=== PATIENT | female | born 1940 | race Caucasian/White ===

== ENCOUNTER 2016-09-21 17:08 | Emergency (ER) | payer MEDICARE ==
[~2016-09-21] VITALS: Ht 170.2 cm; Wt 84.5 kg
[~2016-09-21 17:08] MED LIST: HCTZ1TAB PO; KLO5T PO; LEVO100T6 PO; LISI-567 PO
[2016-09-21 17:19] VITALS: BP 167/83; PULSE 71; RESP 16; O2SAT 97
--- NOTE | 2016-09-21 18:25 | ED.REPORT ---
HPI-Head Prob / Injury Date of Service Sep 21, 2016 ED Provider: Brandan Whitaker MD Pt is a 66 year old female with a history of hypertension who presents to the ED after a ground level fall at 16:00 today. She c/o associated nausea, knee pain, and head pain. She denies LOC, difficulty thinking, back pain, speech changes, and neck pain. Pt reports that she accidentally tripped over a table, causing her to fall onto the ground. Per pt, her last tetanus shot was more than 10 years ago. Nursing Notes Stated Complaint: HEAD INJURY/NAUSEA Chief Complaint: Multiple Trauma/Fall Nursing Notes Reviewed: Yes ([employer]akto[employer], meds not reconciled) Allergies: Coded Allergies: labetalol (Verified Allergy, Severe, Throat tight, 09/21/16) nifedipine (Verified Allergy, Intermediate, Dizzy, 09/21/16) Proton Pump Inhibitors (Verified Allergy, Mild, Worsened GI pain, 09/21/16) ranitidine (Verified Allergy, Mild, GI PAIN, 09/21/16) verapamil (Verified Allergy, Mild, Fatigue, 09/21/16) Sulfa (Sulfonamide Antibiotics) (Verified Allergy, Unknown, 09/21/16) Uncoded Allergies: CLONDINE (Allergy, Mild, Dry mouth, 09/21/16) Scheduled Levothyroxine (Levothyroxine) 100 Mcg Tablet 100 MCG PO DAILY Lisinopril (Lisinopril) 20 Mg Tablet 20 MG PO DAILY Spironolactone/HCTZ 25-25 mg (Aldactazide 25-25 mg) 1 Tab Tablet 1 TABLET PO DAILY Scheduled PRN Clonazepam (Clonazepam) 0.5 Mg Tablet 0.5 MG PO BID PRN PRN For Anxiety General Time Seen by Provider: 06:30 Chief Complaint Other (Ground level fall) Hx Obtained From: Patient Arrived By: Walk-in Onset Occurred: Just prior to arrival Symptom Duration: Since onset Location: : Forehead Quality: Painful Severity: Current: Moderate Severity: Maximum: Moderate Recent Healthcare: No recent doctor visit, No recent hospitalization Similar Sx Previous: No Past Medical History Past Medical History Hypothyroidism Anxiety Reports: Hypertension Past Surgical History Reports: Appendectomy, Hysterectomy, Tonsillectomy Smoking History Never Smoker Social History Alcohol Use: "Social" Drug Use: Denies drug use Other Social History: Good social support Ambulatory Status Independent Review of Systems + head pain GI: Reports: Nausea Musculoskeletal: Reports: Extremity pain, Denies: Back pain, Neck pain Neurologic: Denies: Change LOC, Slurred speech, Unable to speak Complete sys rev & neg: except as marked. Physical Exam Initial Vital Signs Vital Signs (First) Date Time Temp Pulse Resp B/P Pulse Ox O2 Delivery O2 Flow Rate FiO2 09/21/16 17:19 36.7 71 16 167/83 97 Room Air Initial VS: Reviewed, Vital signs normal (mod HTN) Respiratory: Breath sounds normal, Clear to auscultation, No respiratory distress Cardiovascular: Regular rate & rhythm, Heart sounds normal, Intact distal pulses Abdomen / GI: Soft, Non-tender Skin: Warm, Dry, No cyanosis Psychiatric: Mood/affect normal, Behavior normal General/Constitutional: Awake, Alert HEAD/EYES: Abraision and swelling around right eye. Pupils are normal. ENT: Atraumatic, Airway patent Neck: Atraumatic, Supple, Full range of motion Neurologic: Oriented X3, Speech NL, No motor deficits, No sensory deficits Lower Extremity / Pelvis / MS: Full range of motion, Neurologic intact, Vascular intact Abraision over the right knee Interpretation & Diagnostics CT Head Interpretation IMPRESSION: No trauma found. Dictated by: Henrry Prescott M.D. on 09/21/2016 at 19:20 Study: Head CT no contrast Interpretation / Wet Read by: Interpret - Radiologist Re-Eval/Medical Decision Med Decision/Clinical Course This is a pleasant 76-year-old female presents following a ground-level fall she has struck her right side of the head against the ground. It was a mechanical trip she lost balance, no antecedent symptoms. She denies any injury. Some mild soreness and headache. She is not on any vitamins. She denies neck pain, she has numbness weakness paresthesias. On exam she is awake alert and appropriate she has periorbital ecchymosis and an abrasion on the right periorbital area, minor breaks in the right knee with no signs of lower extremity significant injury. She is neurologically appropriate. She has no cervical motion tenderness. She has no clinical signs of toxic CT of the brain was obtained given her age, and is negative. Routine precautions reviewed. Patient did not recall her last tetanus so she received a tetanus update. Wound care discussed. Patient is discharged in stable condition. Routine and return precautions reviewed. Source of Hx: Old records Re-Evaluation/Progress : Time of Eval: 19:42 Re-Evaluation/Progress Note: Pt rechecked. Informed pt of plan for discharge. Pt understands and agrees with plan for discharge. F/U instructions and RTER warnings given. All questions addressed. Differential Diagnosis: Positive: Abrasion, Blunt head trauma, Negative: Basilar skull fracture, Cerebral contusion, Cervical spine injury, Contusion, Epidural hematoma, Epistaxis, Eye injury, Gun shot wound head, Intracranial hemorrhage, Penetrating head injury, Post-concussive syndrome, Scalp laceration, Subdural hematoma Counseled Regarding: Diagnosis, Need for follow-up, When/why to return to ED Discharge & Departure Primary Impression: Blunt head trauma Encounter type: initial encounter Qualified Code: S09.8XXA - Other specified injuries of head, initial encounter Additional Impressions: Abrasion of eye region Encounter type: initial encounter Laterality: right Qualified Code: S05.8X1A - Other injuries of right eye and orbit, initial encounter Abrasion of right knee Encounter type: initial encounter Qualified Code: S80.211A - Abrasion, right knee, initial encounter Disposition: Home All VS Reviewed: Yes Condition: Stable Additional Instructions: 1. The CT scan of the brain was normal. 2. He is okay to sleep, you do not have to be woken up. However, if you develop an unusually severe headache, numbness or weakness anywhere at any time over the next several weeks, he should return to the emergency department and be rechecked. 3. Apply bacitracin or Neosporin (antibiotic ointment) daily to the abrasion. You received a tetanus update. 4. Activities as tolerated. 5. Return if new or worsening symptoms occur. Referrals: Kuldeep Gant MD (PCP) Scribe Attestation Portions of this note were transcribed by Marlene Castañeda. I, Dr. Whitaker personally performed the history, physical exam and medical decision-making; I reviewed and confirmed the accuracy of the information in the transcribed note. Signed by: Vladimir Jorge, 09/21/16. copies to: Kuldeep Gant MD, Matthew F MD Sep 21, 2016 18:25 Marlene Garcia Sep 21, 2016 18:42
[2016-09-21] MEDS ORDERED: Bacitracin Ointment Packet TOPICAL ONE (18:45)
[2016-09-21] MEDS ORDERED: TdaP Vaccine 0.5 mL Inj IM ONE (18:45)
--- NOTE | 2016-09-21 19:22 | DRSVH ---
PROCEDURE: CT BRAIN WITHOUT CONTRAST ([id number]) INDICATIONS: trauma TECHNIQUE: Noncontrast 4.5 mm thick angled axial sections acquired from the foramen magnum to the vertex, with c oronal reformats. COMPARISON: [facility], CT, BRAIN W/O CONTRAST, 02/01/2010, 17:52. FINDINGS: Image quality: Excellent. CSF spaces: Basal cisterns are patent. No extra-axial fluid collections. The ventricles are symmet clara in size and shape. Brain: No intracranial bleeds or masses. There is cerebral volume loss for age, with resultant vent ricular and sulcal prominence. There are periventricular and deep white matter chronic small vessel ischemic changes. There is intracranial internal carotid artery atherosclerosis. Skull and face: Calvarium and visualized facial bones appear intact, without suspicious lesions. Sinuses: Visualized sinuses and mastoids are clear. IMPRESSION: No trauma found. Dictated by: Henrry Prescott M.D. on 09/21/2016 at 19:20 Approved by: Henrry Prescott M.D. on 09/21/2016 at 19:21
[2016-09-21 20:21] VITALS: BP 145/74; PULSE 72; RESP 16; O2SAT 99
== END 2016-09-21 20:16 | disposition home or self-care (01) ==
LOC: SED 17:08
DX: S09.8XXA Other specified injuries of head, initial encounter (principal); S05.8X1A Other injuries of right eye and orbit, initial encounter; S80.211A Abrasion, right knee, initial encounter; W01.0XXA Fall on same level from slipping, tripping and stumbling without subsequent striking against object, initial encounter; Y93.89 Activity, other specified; Y92.018 Other place in single-family (private) house as the place of occurrence of the external cause; Y99.8 Other external cause status; I10 Essential (primary) hypertension; E03.9 Hypothyroidism, unspecified; Z88.2 Allergy status to sulfonamides; Z88.8 Allergy status to other drugs, medicaments and biological substances; Z23 Encounter for immunization